=== PATIENT | male | born 1950 | race Caucasian/White ===

== ENCOUNTER 2018-09-25 08:36 | Emergency (ER) | payer OTHER ==
[2018-09-25] MEDS: ACETAMINOPHEN 500 MG TAB PO (09:18)
== END 2018-09-25 11:19 | disposition home or self-care (01) ==
LOC: FTE 08:36
DX: M79.605 Pain in left leg (principal); E11.9 Type 2 diabetes mellitus without complications
CPT/HCPCS: 73630; 73630-LT; 82962; 93971; 99284-25

== ENCOUNTER 2018-10-24 08:11 | Emergency (ER) | payer OTHER ==
[2018-10-24 08:53] LABS: ADD MAN DIFF? NO
[2018-10-24 08:56] LABS: BASOPHILS % 0.5 % (0.0-2.0); EOSINOPHILS # 0.1 10^3/ul (0.0-0.5); EOSINOPHILS % 1.1 % (0.0-7.0); HEMATOCRIT 46.2 % (42.0-52.0); HEMOGLOBIN 15.3 g/dl (14.0-18.0); LYMPHOCYTES # 1.2 10^3/ul (0.8-2.9); LYMPHOCYTES % 16.2 % (15.0-51.0); MEAN CORPUSCULAR HEMOGLOBIN 30.7 pg (29.0-33.0); MEAN CORPUSCULAR HGB CONC 33.1 g/dl (32.0-37.0); MEAN CORPUSCULAR VOLUME 92.6 fl (82.0-101.0); MEAN PLATELET VOLUME 10.5 fl (7.4-10.4); MONOCYTE # 0.6 10^3/ul (0.3-0.9); MONOCYTES % 8.6 % (0.0-11.0); NEUTROPHIL # 5.4 10^3/ul (1.6-7.5); NEUTROPHILS % 73.1 % (39.0-77.0); PLATELET COUNT 176 10^3/UL (140-415); RED BLOOD COUNT 4.99 10^6/ul (4.70-6.10); RED CELL DISTRIBUTION WIDTH 13.4 % (11.5-14.5)
[2018-10-24 08:56] LABS: WHITE BLOOD COUNT 7.3 10^3/ul (4.8-10.8)
[2018-10-24 09:13] LABS: ANION GAP 9 (5-13); BLOOD UREA NITROGEN 26 mg/dl (7-20); CALCIUM 9.1 mg/dl (8.4-10.2); CARBON DIOXIDE 25 mmol/L (21-31); CHLORIDE 107 mmol/L (97-110); CREATININE 0.77 mg/dl (0.61-1.24); Estimated GFR > 60 mL/min (>60); GLUCOSE 279 mg/dl (70-220); POTASSIUM 5.2 mmol/L (3.5-5.1); SODIUM 141 mmol/L (135-144)
[2018-10-24 09:25] LABS: TROPONIN-I 0.016 ng/ml (0.000-0.120)
[2018-10-24] MEDS: HYDROCODONE/APAP (10/325) TAB PO (10:02)
[2018-10-24 11:17] LABS: TROPONIN-I 0.019 ng/ml (0.000-0.120)
== END 2018-10-24 12:42 | disposition home or self-care (01) ==
LOC: E/R 08:11
DX: R55 Syncope and collapse (principal); I10 Essential (primary) hypertension; S22.39XA Fracture of one rib, unspecified side, initial encounter for closed fracture; W18.39XA Other fall on same level, initial encounter; Y92.002 Bathroom of unspecified non-institutional (private) residence as the place of occurrence of the external cause
CPT/HCPCS: 36415; 71100; 80048; 82962; 84484; 85025; 93005; 99285-25